=== PATIENT | female | born 1960 | race Caucasian/White ===

== ENCOUNTER 2016-11-07 02:24 | Inpatient (IN) ==
--- NOTE | 2016-11-07 04:26 | Internal Med History&Physical ---
Date of Encounter: 11/07/16 Time of Encounter: 04:18 Assessment and Plan (1) Lower GI bleed Current visit: No Status: Acute Active lower GI bleeding status post polypectomy. No thrombocytopenia, no abnormal coagulation profile. Continue monitoring hemoglobin and hematocrit. Transfuse when necessary. Eval by gastroenterology. ICU care. DVT prophylaxis with Venodyne boots. (2) Syncope Current visit: Yes Status: Acute Syncope likely induced by lower GI bleeding. Continue monitoring Head CT ordered. Qualifiers: Syncope type: unspecified Qualified Code(s): R55 - Syncope and collapse (3) Hypertension Current visit: Yes Status: Acute Continue Monitoring. Qualifiers: Hypertension type: essential hypertension Qualified Code(s): I10 - Essential (primary) hypertension (4) Obesity Current visit: Yes Status: Acute Qualifiers: Obesity type: unspecified obesity type Obesity severity: unspecified obesity severity Qualified Code(s): E66.9 - Obesity, unspecified (5) Anemia Current visit: Yes Status: Acute Acute post hemorrhagic anemia. Continue monitoring closely. Qualifiers: Anemia type: other cause Other causes of anemia: acute posthemorrhagic Qualified Code(s): D62 - Acute posthemorrhagic anemia (6) Tobacco use disorder Current visit: Yes Status: Acute Nicotine patch. (7) Hypothyroidism Current visit: Yes Status: Acute Continue with Synthroid. Check TSH levels. Qualifiers: Hypothyroidism type: unspecified Qualified Code(s): E03.9 - Hypothyroidism , unspecified (8) DVT prophylaxis Current visit: Yes Status: Acute DVT prophylaxis will be provided with Venodyne boots in light of active bleeding. We will avoid heparin. Internal Medicine - H&P: HPI Chief complaint: rectal bleeding Admitted From: Hospital to Hospital Transfer Plans for Post Hospital Care: Home History of present illness: Ms. Watson is a 56 year old female past medical history of hypertension, hyperlipidemia, obstructive sleep apnea, chronic active smoker, hypothyroidism, history of ablation in April 2016, history of a DVT many years ago not on anticoagulation. She presented to [facility] due to rectal bleeding. The patient had a colonoscopy yesterday at [facility]. She states she had 3 polyps removed. She states she had a small amount of bleeding this morning when she had a bowel movement. This evening just prior to calling the squad she got up to use the bathroom. She passed a large amount of bright red blood and clots. She got dizzy and lightheaded and passed out. Hemoglobin was 14.5 at the beginning of the month, and currently 9.0. It was 11.1 and she was ordered a blood transfusion of packed red blood cells. The emergency department at [place] attempted to transfer the patient back to [facility], however the reproduction artist was not reached. Afterwards they D/W our reproduction artist who will be consulted. The patient has been accepted to [facility] for further management. An ICU bed was assigned to the patient. Upon arrival to the ICU her blood pressure was 109 /69, respiratory rate was 18/m, heart rate was 50 mL/m. The patient is currently receiving a blood transfusion. She denies chest pain, fever, chills, shortness of breath. She is otherwise asymptomatic at this point. The patient states that she is taking aspirin, denies the use of any other blood thinners. Denies history of chronic liver disease, and a history of diabetes. Past Med Surg Social Fam HX - Past Medical History Medical history: asthma, DVT, hypertension, thyroid disease Psychiatric history: depression - Social History Smoking Status: Current every day smoker Packs per day: 0.5 Smokeless Tobacco Status: No Alcohol use: rarely Drug use: none Internal Medicine - H&P: Meds Albuterol Sulfate [Albuterol Inhaler] 2 puff IH Q6HR PRN #1 hfa.aer.ad 10/16/15 [Rx] FLUoxetine HCl [PROzac] 20 mg PO BID 10/16/15 [History] Levothyroxine [Synthroid] 175 mcg PO 0630 10/16/15 [History] Hydrochlorothiazide 25 mg PO DAILY 11/06/16 [History] Lisinopril [Zestril] 20 mg PO DAILY 11/06/16 [History] Metoprolol [Lopressor] 25 mg PO HS 11/06/16 [History] Allergies No Known Allergies Allergy (Verified 10/16/15 15:51) All Systems PM: A 10-system review of systems was performed and is negative for pertinent findings except as documented above in the HPI. - Constitutional Constitutional: as per HPI, no chills, no fever(s), no night sweats - EENT Eyes: as per HPI, no change in vision, no discharge, no pain, no photophobia Ears: as per HPI, no ear discharge, no ear pain, no tinnitus Nose, mouth and throat: as per HPI, no dysphagia, no nasal discharge, no neck pain, no sore throat - Breasts Breasts: as per HPI - Cardiovascular Cardiovascular ROS IM: as per HPI, no chest pain, no diaphoresis, no dyspnea, no lightheadedness, no palpitations, no syncope - Respiratory Respiratory: as per HPI, no cough, no dyspnea, no wheezing, no excessive phlegm production - Gastrointestinal Gastrointestinal: hematochezia, no abdominal pain, no diarrhea, no hematemesis, no melena, no nausea, no vomiting - Genitourinary Genitourinary: as per HPI, no change in urinary stream, no dysuria, no flank pain, no hematuria Menstruation: as per HPI - Musculoskeletal Musculoskeletal ROS IM: as per HPI, no numbness, no tingling - Integumentary Integumentary IM: as per HPI, no rash, no unusual bruising - Neurological Neurological ROS: as per HPI, no confusion, no convulsions, no focal weakness, no numbness, no tingling, no tremor(s) - Psychiatric Psychiatric: as per HPI - Endocrine Endocrine IM: as per HPI - Hematologic/Lymphatic Hematologic/Lymphatic: as per HPI, no easy bruising - Allergic/Immunologic Allergic/Immunologic: as per HPI - Head Head exam: Present: atraumatic, normocephalic - Eye Eye exam: Present: PERRL, conjuntiva pink, sclera anicteric Pupils: Present: PERRL - Neck Neck exam general surgery: Present: supple, trachea midline. Absent: lymphadenopathy - Respiratory Respiratory exam: Present: CTAB. Absent: accessory muscle use, rales, rhonchi, wheezes - Cardiovascular Cardiovascular exam: Present: RRR, +S1, +S2. Absent: diastolic murmur, gallop, rubs, systolic murmur - GI/Abdominal GI/Abdominal exam: Present: normal bowel sounds, soft, no peritoneal signs. Absent: distended, tenderness - Extremities Exam Extremities exam: Present: warm, radial pulses palpable and symetrical. Absent : calf tenderness, cyanotic, pedal edema - Neurological Exam Neurological exam: Present: CN II-XII intact, oriented X3, no focal deficits. Absent: pronater drift, facial droop, speech deficit - Skin Skin exam: Present: dry, intact Internal Med - H&P Results - Labs Labs: Labs reviewed.
[2016-11-07] MEDS ORDERED: Naloxone 0.4 MG/ML INJ IVP PRN (04:36)
[2016-11-07] MEDS ORDERED: *HR* Morphine 2 MG/ML SYRINGE IVP PRN (04:36)
[2016-11-07] MEDS ORDERED: Pantoprazole 40 MG VIAL IVP ONE (04:40)
[2016-11-07] MEDS ORDERED: Albuterol 2.5 MG/3 ML NEBULIZER IH PRN (04:40)
[2016-11-07] MEDS ORDERED: 0.9 % Sodium Chloride 1,000 ML IVC SCH (04:45)
[2016-11-07 06:16] LABS: Basophils # 0.1 K/mcL (0.0-0.2); Basophils % 0.4 %; Eosinophils # 0.1 K/mcL (0.0-0.6); Eosinophils % 0.5 %; Hematocrit 31.2 % (35.3-44.9); Hemoglobin 10.3 g/dL (11.5-15.4); Immature Granulocytes % 0.3 % (0-4); Lymphocytes # 4.7 K/mcL (0.6-4.6); Lymphocytes % 31.4 %; Mean Corpuscular Hemoglobin 29.9 pg (28.0-33.3); Mean Corpuscular Volume 90.4 fL (83.0-100.0); Mean Platelet Volume 11.9 fL (9.4-12.4); Monocytes % 6.4 %; Neutrophils # 9.2 K/mcL (1.6-8.9); Platelet Count 144 K/mcL (140-400); Red Blood Count 3.45 M/mcL (3.82-4.97)
[2016-11-07 06:27] LABS: INR 1.2; Prothrombin Time 12.5 Seconds (9.4-12.1)
[2016-11-07 06:37] LABS: Hemoglobin A1C 5.4 %
[2016-11-07 06:40] LABS: Albumin 2.6 g/dL (3.5-5.0); Bilirubin,Total 0.3 mg/dL (0.2-1.2); Globulin 2.6 g/dL (2.4-3.5); Magnesium 1.4 mg/dL (1.6-2.6); Potassium 3.8 mEq/L (3.5-4.5); Total Protein 5.2 g/dL (6.0-8.3)
[2016-11-07] MEDS ORDERED: Magnesium Sulfate 2 GM in D5% in Water 100 ML IVPB ONE (08:13)
[2016-11-07] MEDS ORDERED: SODIUM CHLORIDE/NAHCO3/KCL/PEG 4,000 ML SOLN.RECON PO ONE (08:15)
--- NOTE | 2016-11-07 08:47 | Internal Med Progress Note ---
Date of Encounter: 11/07/16 Time of Encounter: 08:30 - Assessment and plan (1) Lower GI bleed Current Visit: No Status: Acute Assessment and plan: Patient s/p polypectomy GI consulted, Dr. Larry to see the patient later today Started Golytely prep for possible colonoscopy later today Will closely monitor H&H S/P one unit PRBC transfusion Will continue to monitor and transfuse as needed. Hold Aspirin at this time continue IV fluids NPO IV protonix (2) Anemia Current Visit: Yes Status: Acute Assessment and plan: Acute blood loss anemia secondary to lower GI bleed will continue to closely monitor and transfuse as needed Qualifiers: Anemia type: other cause Other causes of anemia: acute posthemorrhagic Qualified Code(s): D62 - Acute posthemorrhagic anemia (3) Metabolic acidosis Current Visit: Yes Status: Acute Assessment and plan: Normal anion gap metabolic acidosis likely secondary to IV fluid infusion Given recent GI bleed and current NPO status, will continue IV fluids however will decrease IV fluid infusion rate and continue to monitor (4) Hypertension Current Visit: Yes Status: Acute Assessment and plan: Noted to be hypotensive BP low but acceptable Currently asymptomatic continue to hold all home antihypertensive medications at this time will closely monitor IVF bolus if MAP<65 Qualifiers: Hypertension type: essential hypertension Qualified Code(s): I10 - Essential (primary) hypertension (5) Hypothyroidism Current Visit: Yes Status: Chronic Qualifiers: Hypothyroidism type: unspecified Qualified Code(s): E03.9 - Hypothyroidism , unspecified (6) DVT prophylaxis Current Visit: Yes Status: Acute Assessment and plan: IPCD - Subjective Interval history: Patient is a 56y/o female admitted to the ICU for management of lower GI bleed. Patient seen and examined at bedside. Resting in bed and reports of having another episode of BRPR earlier this morning around 5. Noted to be hypotensive but denies any headache, dizziness,chest pain, sob, n/v, abd discomfort at this time. I spoke with Dr. Larry. Patient to be started to bowel prep with Golytely and possible colonoscopy later today. - Constitutional Vitals: Temp Pulse Resp BP Pulse Ox 97.9 F 60 18 104/71 99 11/07/16 08:20 11/07/16 06:00 11/07/16 06:00 11/07/16 06:00 11/07/16 06:00 General appearance: Present: A&O X 3, morbidly obese, no acute distress, answers questions appropriately - Head Head exam: Present: atraumatic, normocephalic - Eye Eye exam: Present: EOMI, normal appearance, conjuntiva pink, sclera anicteric - Respiratory Respiratory exam: Present: CTAB. Absent: accessory muscle use, rales, rhonchi, wheezes - Cardiovascular Cardiovascular exam: Present: RRR, +S1, +S2. Absent: diastolic murmur, gallop, rubs, systolic murmur - GI/Abdominal GI/Abdominal exam: Present: normal bowel sounds, soft, no peritoneal signs. Absent: distended, tenderness - Extremities Exam Extremities exam: Present: warm, radial pulses palpable and symetrical. Absent : calf tenderness, cyanotic, pedal edema - Neurological Exam Neurological exam: Present: alert, oriented X3 - Psychiatric Psychiatric exam: Present: normal affect, normal mood Internal Medicine: Result - Labs CBC & Chem 7: 11/07/16 05:57 11/07/16 05:57 Labs: Short CBC 11/07/16 Range/Units 05:57 WBC 15.0 H (4.3-11.1) K/mcL Hgb 10.3 L (11.5-15.4) g/dL Hct 31.2 L (35.3-44.9) % Plt Count 144 (140-400) K/mcL Neutrophils # 9.2 H (1.6-8.9) K/mcL BMP 11/07/16 05:57 Sodium 139 Potassium 3.8 Chloride 113 H Carbon Dioxide 18 L BUN 30 H Creatinine 1.16 H Glucose 99 Calcium 8.0 L Cardiac Enzymes 11/07/16 Range/Units 05:57 Troponin I 0.00 (0-0.03) ng/mL Liver Function 11/07/16 Range/Units 05:57 Total Bilirubin 0.3 (0.2-1.2) mg/dL AST 22 (5-34) Units/L ALT 19 (0-55) Units/L Alkaline Phosphatase 55 (38-126) Units/L Albumin 2.6 L (3.5-5.0) g/dL - ABG Interpretation ABG results: PT/INR, D-dimer PT 12.5 Seconds (9.4-12.1) H 11/07/16 05:57 - Impressions Impressions Head CT 11/07/16 04:29 IMPRESSION: No acute intracranial abnormality. D/ / Jayden Thrasher MD / Jayden Thrasher MD Interpreting Provider: Jayden Thrasher MD Consult Discharge Plan - Plan Referrals: NO,PCP [Primary Care Provider] -
[2016-11-07] MEDS ORDERED: 0.9 % Sodium Chloride 250 ML IVC PRN (08:58)
[2016-11-07 13:12] LABS: Hematocrit 31.4 % (35.3-44.9); Hemoglobin 10.6 g/dL (11.5-15.4)
[2016-11-07] MEDS: 0.9 % Sodium Chloride 1,000 ML IVC SCH ×2 (13:47→22:00)
[2016-11-07] MEDS ORDERED: Ondansetron 4 MG/2 ML VIAL ONE (15:35)
[2016-11-07] MEDS: Pantoprazole 40 MG VIAL IVP SCH (16:56)
[2016-11-07] MEDS ORDERED: Ondansetron 4 MG/2 ML VIAL IVP PRN (18:00)
[2016-11-07 18:10] LABS: Hematocrit 33.1 % (35.3-44.9); Hemoglobin 10.7 g/dL (11.5-15.4)
[2016-11-08 03:32] LABS: Basophils # 0.1 K/mcL (0.0-0.2); Basophils % 0.6 %; Eosinophils # 0.2 K/mcL (0.0-0.6); Eosinophils % 1.6 %; Hematocrit 30.9 % (35.3-44.9); Hemoglobin 9.9 g/dL (11.5-15.4); Immature Granulocytes % 0.2 % (0-4); Lymphocytes # 3.9 K/mcL (0.6-4.6); Lymphocytes % 41.9 %; Mean Corpuscular Hemoglobin 29.6 pg (28.0-33.3); Mean Corpuscular Volume 92.2 fL (83.0-100.0); Mean Platelet Volume 12.1 fL (9.4-12.4); Monocytes # 0.6 K/mcL (0.0-1.3); Monocytes % 6.6 %; Neutrophils # 4.5 K/mcL (1.6-8.9); Platelet Count 131 K/mcL (140-400); Red Blood Count 3.35 M/mcL (3.82-4.97); Red Cell Distribution Width 14.1 % (11.5-14.5); Segmented Neutrophils % 49.1 %
[2016-11-08 03:40] LABS: BUN/Creatinine Ratio 17 (6-26); Calcium 8.2 mg/dL (8.6-10.8); Carbon Dioxide 20 mEq/L (19-29); Chloride 114 mEq/L (98-109); Glucose 92 mg/dL (70-99); Magnesium 1.6 mg/dL (1.6-2.6); Osmolality,Calculated 293 (280-300); Phosphorous 2.9 mg/dL (2.3-4.7); Sodium 141 mEq/L (136-145); eGFR For African Americans > 60 (> 60); eGFR For Non-African Americans 58 (> 60)
[2016-11-08 03:50] LABS: Blood Urea Nitrogen 17 mg/dL (7-20)
[2016-11-08] MEDS: Pantoprazole 40 MG VIAL IVP SCH ×2 (06:08→17:58)
[2016-11-08] MEDS ORDERED: Polyethylene Glycol 3350 255 GM POWDER PO ONE (07:41)
--- NOTE | 2016-11-08 09:28 | Internal Med Progress Note ---
Date of Encounter: 11/08/16 Time of Encounter: 09:26 - Assessment and plan (1) Lower GI bleed Current Visit: No Status: Acute Assessment and plan: Acute blood loss anemia secondary to Lower GI bleed possibly due s/p polypectomy GI consulted, Dr. Larry to perform a colonoscopy today Started Golytely prep for possible colonoscopy Will closely monitor H&H S/P one unit PRBC transfusion Will continue to monitor and transfuse as needed. Hold Aspirin at this time continue IV fluids NPO IV protonix the patient requested to be discharged as her mother , AMA signing was considered but I explained the risks including a and finally she agreed to stay (2) Hypertension Current Visit: Yes Status: Acute Assessment and plan: Noted to be hypotensive on 11/07/16 stable now Currently asymptomatic continue to hold all home antihypertensive medications at this time will closely monito/rIVF bolus if MAP<65 Qualifiers: Hypertension type: essential hypertension Qualified Code(s): I10 - Essential (primary) hypertension (3) Syncope Current Visit: Yes Status: Acute Assessment and plan: syncope due to severe hypovolemia secondary to acute blood loss fall precautions Qualifiers: Syncope type: unspecified Qualified Code(s): R55 - Syncope and collapse (4) Anemia Current Visit: Yes Status: Acute Assessment and plan: Acute blood loss anemia secondary to lower GI bleed will continue to closely monitor and transfuse as needed Qualifiers: Anemia type: other cause Other causes of anemia: acute posthemorrhagic Qualified Code(s): D62 - Acute posthemorrhagic anemia (5) Tobacco use disorder Current Visit: Yes Status: Acute (6) Hypothyroidism Current Visit: Yes Status: Chronic Qualifiers: Hypothyroidism type: unspecified Qualified Code(s): E03.9 - Hypothyroidism , unspecified - Time Spent With Patient Greater than 35 minutes - Subjective Interval history: the patient is very anxious as she was just made aware that her mother . Has been having more bloody stools. Denies CP or SOB, no dysuria. No fever - Constitutional Vitals: Temp Pulse Resp BP Pulse Ox 97.8 F 67 16 137/73 97 11/08/16 07:13 11/08/16 07:13 11/08/16 07:13 11/08/16 07:13 11/08/16 07:13 General appearance: Present: A&O X 3, morbidly obese, no acute distress, answers questions appropriately - Head Head exam: Present: atraumatic, normocephalic - Eye Eye exam: Present: PERRL, conjuntiva pink, sclera anicteric Pupils: Present: PERRL - Neck Neck exam general surgery: Present: supple, trachea midline. Absent: lymphadenopathy - Respiratory Respiratory exam: Present: decreased breath sounds, CTAB. Absent: accessory muscle use, rales, rhonchi, wheezes - Cardiovascular Cardiovascular exam: Present: RRR, +S1, +S2. Absent: diastolic murmur, gallop, rubs, systolic murmur - GI/Abdominal GI/Abdominal exam: Present: normal bowel sounds, soft, no peritoneal signs. Absent: distended, tenderness - Extremities Exam Extremities exam: Present: warm, radial pulses palpable and symetrical. Absent : calf tenderness, cyanotic, pedal edema - Neurological Exam Neurological exam: Present: CN II-XII intact, oriented X3, no focal deficits. Absent: pronater drift, facial droop, speech deficit - Skin Skin exam: Present: dry, intact Internal Medicine: Result - Labs CBC & Chem 7: 11/08/16 02:43 11/08/16 02:43 Labs: Short CBC 11/07/16 11/07/16 11/08/16 Range/Units 12:50 18:04 02:43 WBC 9.2 (4.3-11.1) K/mcL Hgb 10.6 L 10.7 L 9.9 L (11.5-15.4) g/dL Hct 31.4 L 33.1 L 30.9 L (35.3-44.9) % Plt Count 131 L (140-400) K/mcL Neutrophils # 4.5 (1.6-8.9) K/mcL BMP 11/08/16 02:43 Sodium 141 Potassium 4.0 Chloride 114 H Carbon Dioxide 20 BUN 17 D Creatinine 0.99 Glucose 92 Calcium 8.2 L Cardiac Enzymes 11/07/16 11/07/16 Range/Units 12:50 18:04 Troponin I 0.00 0.00 (0-0.03) ng/mL - ABG Interpretation ABG results: PT/INR, D-dimer PT 12.5 Seconds (9.4-12.1) H 04/01/17 05:57 Consult Discharge Plan - Plan Referrals: NO,PCP [Primary Care Provider] -
--- NOTE | 2016-11-08 12:22 | Gastroenterology Consult Note ---
Date of Encounter: 11/08/16 Time of Encounter: 09:40 - Assessment and plan (1) Lower GI bleed Current Visit: No Status: Acute Assessment and plan: Lower GI post polypectomy bleed. Patient has been transfused. She is still having bloody bowel movement. She will have a colonoscopy with possible clipping of the bleeding site. Will follow H&H and transfuse as needed - Time Spent With Patient Total time spent is greater than 50% in coordination of care (as documented) at patient's floor/unit and/or counseling patient: GI History of Present Illness - Data of Consult Consult date: 11/08/16 Requesting Physician: Ze Rivero - Consult Narrative Reason for consult: Lower GI bleed in this patient who is post polypectomy History of present illness: Ms. Watson is a 56 year old female with a colonoscopy done on at [facility] and had 3 polyps removed. The largest polyp was 25 mm in size. Palpation she noticed some blood even after being discharged but at the evening she started having more abdominal cramping and she was also having bloody bowel movement. Still having bloody bowel movement with The bowel prep and is complaining feeling bloated. No fever no chills. Has been on aspirin but no other blood thinner medication. Past Med Surg Social Fam HX - Past Medical History Medical history: asthma, DVT, hypertension, thyroid disease Psychiatric history: depression - Social History Smoking Status: Current every day smoker Packs per day: 0.5 Smokeless Tobacco Status: No Alcohol use: rarely Drug use: none Review of Systems: GI: as per PAUMA GENERAL: denies fever, has some chills EYES: denies yellow discoloration ENT: denies pain with swallowing or difficulty swallowing CARDIO: denies chest pain, palpitations RESP: denies shortness of breath or wheezing : denies change in color of urine NEURO: some nonspecific weakness HEME: Denies any bruising MS: denies joint pain, joint swelling or back pain. DERM: denies rash or itching PSYCH: has history of: depression/anxiety - Constitutional Vitals: Temp Pulse Resp BP Pulse Ox 98.7 F 80 16 153/97 97 11/08/16 11:20 11/08/16 11:20 11/08/16 11:20 11/08/16 11:20 11/08/16 07:13 General appearance: Present: A&O X 3, pleasant - Head Head exam: Present: normocephalic - Eye Eye exam: Present: sclera anicteric - Neck Neck exam general surgery: Present: supple - Respiratory Additional comments: Bilateral good air entry no crackle wheezing - Cardiovascular Cardiovascular exam: Present: +S1, +S2 Additional comments: Rhythm is regular - GI/Abdominal Additional comments: Abdomen is large but soft no focal tenderness - Rectal Rectal exam: Present: deferred - Neurological Exam Neurological exam: Present: oriented X3 - Skin Skin exam: Present: dry, warm Results - Labs CBC & Chem 7: 11/08/16 02:43 11/08/16 02:43 Labs: Last Result Calcium 8.2 mg/dL (8.6-10.8) L 11/08/16 02:43 Troponin I 0.00 ng/mL (0-0.03) 11/07/16 18:04 Entire Visit Hgb 9.9 g/dL (11.5-15.4) L 11/08/16 02:43 Hct 30.9 % (35.3-44.9) L 11/08/16 02:43 PT 12.5 Seconds (9.4-12.1) H 11/07/16 05:57 Total Bilirubin 0.3 mg/dL (0.2-1.2) 11/07/16 05:57 AST 22 Units/L (5-34) 11/07/16 05:57 ALT 19 Units/L (0-55) 11/07/16 05:57 - ABG ABG results: PT/INR, D-dimer PT 12.5 Seconds (9.4-12.1) H 11/07/16 05:57 Consult Discharge Plan - Plan Referrals: NO,PCP [Primary Care Provider] -
--- NOTE | 2016-11-08 12:28 | Anesthesia Evaluation PreOp ---
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 History: Denies Any Significant HX Other Medical History: Thyroid, Other (Obese) Anesthesia History: No Prior Anesthetic Complications : No Alcohol Use: rarely Drug use: none Medications and Allergies Albuterol Sulfate [Albuterol Inhaler] 2 puff IH Q6HR PRN #1 hfa.aer.ad 10/16/15 [Rx] FLUoxetine HCl [PROzac] 40 mg PO DAILY 10/16/15 [History] Hydrochlorothiazide 25 mg PO DAILY 11/06/16 [History] Lisinopril [Zestril] 20 mg PO BID 11/06/16 [History] Aspirin [Lo-Dose Aspirin EC] 81 mg PO DAILY 11/07/16 [History] Levothyroxine Sodium 150 mcg PO DAILY 11/07/16 [History] Metoprolol XL (24 HR) Succ [Toprol XL] 25 mg PO DAILY 11/07/16 [History] Ondansetron HCl [Zofran] 4 mg PO QID PRN 11/07/16 [History] Allergies No Known Allergies Allergy (Verified 10/16/15 15:51) - Meds/Allergy Pre-op Review Medications Reviewed: Yes Allergies Reviewed: Yes Beta Blockers on Current Med List: No Anesthesia Results - Labs 11/08/16 02:43 11/08/16 02:43 Anesthesia Exam O2 Sat Weight 117.4 kg Weight 123.3 kg O2 Sat by Pulse Oximetry 97 O2 Sat by Pulse Oximetry 97 O2 Sat by Pulse Oximetry 97 O2 Sat by Pulse Oximetry 99 Vital Signs Temp Pulse Resp BP Pulse Ox 98 F 65 18 114/51 100 11/07/16 04:30 11/07/16 04:30 11/07/16 04:30 11/07/16 04:30 11/07/16 04:30 Vital Signs/O2 Sat/Glucose, Most Current Temp Pulse Resp BP 11/08/16 11:20 98.7 F 80 16 153/97 Height: 5'8 Weight: 258 lbs NPO (# of Hours): MN Pain Scale: 0 - HEENT Pupil (Motor): Pupils equal, EOMI Mallampati: III Teeth: Normal Oral Opening: Greater than 3 - HAIRPIECE STYLIST LOC: Oriented HAIRPIECE STYLIST Motor: Normal RUE, Normal LUE, Normal RLE, Normal LLE, Normal Face HAIRPIECE STYLIST Sensory: Normal: RUE, LUE, RLE, LLE, Face - Cardiac Rhythm: Regular Murmur: None JVD: No Carotid Bruit: No - Pulmonary Breath Sounds: bilateral Clear Respiratory Effort: Symmetrical Anesthesia Assess/Plan ASA Score: 3 (HTN ISAIAS Obese) Modified Manju Scale for Level of Consciousness: Cooperative, oriented, and tranquil Anesthetic Plan: MAC Monitoring Plan: Standard Monitors Recovery Plan: Other (Discussed MAC, agrees to proceed)
[2016-11-08] MEDS ORDERED: Lidocaine -MPF 2% 2 ML VIAL ONE (12:43)
[2016-11-08] MEDS ORDERED: Propofol 500 MG/50 ML INFUS..BTL ONE ×2 (12:43)
[2016-11-08] MEDS ORDERED: *HR* FentaNYL (PF) 100 MCG/2 ML VIAL ONE (13:04)
[2016-11-08] MEDS ORDERED: *HR* Propofol 200 MG/20 ML VIAL IVP ONE (13:31)
--- NOTE | 2016-11-08 13:58 | Anesthesia Evaluation Post Op ---
Date of Encounter: 11/08/16 Time of Encounter: 14:00 - Vital Signs Vital Signs: Vital Signs/O2 Sat/Glucose, Most Current Temp Pulse Resp BP 11/08/16 11:20 98.7 F 80 16 153/97 - Lungs Lungs: Clear Ascult./Percussion - Airway Airway: Non-obstructed - Cardiovascular Regular Rate - Mental Status Mental Status: Alert & Oriented, Answers Appropriately - Pain Pain Scale: 0 - Nausea Vomiting Nausea Vomiting: Not Present - Hydration Hydration: NPO - Discharge PostOp Status: Transfer Patient to floor
[2016-11-08 15:17] LABS: Hematocrit 32.3 % (35.3-44.9); Hemoglobin 10.8 g/dL (11.5-15.4)
[2016-11-08 20:51] LABS: Hematocrit 30.5 % (35.3-44.9); Hemoglobin 10.2 g/dL (11.5-15.4); Immature Platelets 7.4 % (1.1-6.1); Mean Corpuscular HGB Conc 33.4 g/dL (31.6-35.5); Mean Corpuscular Hemoglobin 29.9 pg (28.0-33.3); Mean Corpuscular Volume 89.4 fL (83.0-100.0); Mean Platelet Volume 11.5 fL (9.4-12.4); Red Blood Count 3.41 M/mcL (3.82-4.97); Red Cell Distribution Width 13.7 % (11.5-14.5)
[2016-11-09 03:42] LABS: Hematocrit 28.9 % (35.3-44.9); Hemoglobin 9.6 g/dL (11.5-15.4); Mean Corpuscular HGB Conc 33.2 g/dL (31.6-35.5); Mean Corpuscular Hemoglobin 29.7 pg (28.0-33.3); Mean Corpuscular Volume 89.5 fL (83.0-100.0); Mean Platelet Volume 11.8 fL (9.4-12.4); Platelet Count 123 K/mcL (140-400); Red Blood Count 3.23 M/mcL (3.82-4.97); Red Cell Distribution Width 13.8 % (11.5-14.5)
[2016-11-09 03:57] LABS: BUN/Creatinine Ratio 13 (6-26); Blood Urea Nitrogen 13 mg/dL (7-20); Calcium 8.6 mg/dL (8.6-10.8); Carbon Dioxide 19 mEq/L (19-29); Chloride 112 mEq/L (98-109); Glucose 98 mg/dL (70-99); Osmolality,Calculated 288 (280-300); Potassium 3.8 mEq/L (3.5-4.5); Sodium 139 mEq/L (136-145); eGFR For African Americans > 60 (> 60); eGFR For Non-African Americans 58 (> 60)
[2016-11-09] MEDS: Pantoprazole 40 MG VIAL IVP SCH (06:35)
[2016-11-09 07:30] VITALS: BP 135/87
--- NOTE | 2016-11-09 09:06 | Discharge Summary ---
Date of Encounter: 11/09/16 Time of Encounter: 09:04 - Discharge Diagnosis (1) Lower GI bleed Priority: Primary Status: Acute Comments: Syncope from hypovolemia with Acute blood loss anemia secondary to Lower GI bleed due to bleeding colonic ulcers after polypectomy s/p cautherization and clipping (2) Hypertension Priority: Secondary Status: Acute Qualifiers: Hypertension type: essential hypertension Qualified Code(s): I10 - Essential (primary) hypertension (3) Syncope Priority: Primary Status: Acute Qualifiers: Syncope type: unspecified Qualified Code(s): R55 - Syncope and collapse (4) Anemia Priority: Primary Status: Acute Qualifiers: Anemia type: other cause Other causes of anemia: acute posthemorrhagic Qualified Code(s): D62 - Acute posthemorrhagic anemia (5) Tobacco use disorder Priority: Secondary Status: Acute (6) Hypothyroidism Priority: Secondary Status: Chronic Qualifiers: Hypothyroidism type: unspecified Qualified Code(s): E03.9 - Hypothyroidism , unspecified - Discharge Medications Prescriptions: Omeprazole [PriLOSEC] 40 mg PO DAILY #30 cap Home Medications: Albuterol Sulfate [Albuterol Inhaler] 2 puff IH Q6HR PRN #1 hfa.aer.ad 10/16/15 [Rx] FLUoxetine HCl [Prozac] 40 mg PO DAILY 10/16/15 [History] Hydrochlorothiazide 25 mg PO DAILY 11/06/16 [History] Lisinopril [Zestril] 20 mg PO BID 11/06/16 [History] Aspirin [Lo-Dose Aspirin EC] 81 mg PO DAILY 11/07/16 [History] Levothyroxine Sodium 150 mcg PO DAILY 11/07/16 [History] Metoprolol XL (24 HR) Succ [Toprol Xl] 25 mg PO DAILY 11/07/16 [History] Ondansetron HCl [Zofran] 4 mg PO QID PRN 11/07/16 [History] Omeprazole [PriLOSEC] 40 mg PO DAILY #30 cap 11/09/16 [Rx] Allergies/Adverse Reactions: Allergies No Known Allergies Allergy (Verified 10/16/15 15:51) Procedures/tests Complete & Pending: Procedures Performed prior 72 hours Category Date Time Status CT head/brain wo con [CT] Stat Cat Scan 11/07/16 04:29 Completed Date of admission: 11/07/16 03:49 Primary care physician: PCP NO Consults: 11/07/16 07:00 Consult to Gastroenterology [CONS] Routine Consulting Provider: Carol Brandt Reason for Consult: lower gi bleeding post polypectomy Call Completed: No - Patient Status Disposition: Home, Self-Care Condition: Good Overall status at discharge: patient is progressing back to baseline - Discharge Instructions Follow Up With: NO,PCP [Primary Care Provider] - Additional Instructions: Follow with primary care physician within the next 7 days. Hold aspirin for 1 week. Continue omeprazole 40 mg daily. Low residue diet. Follow with GI within the next 3 months to schedule next colonoscopy. Quit smoking - Diet and Activity Activity: increase activity as tolerated Diet: other (low residue diet) Hospital course: Ms. Watson is a 56 year old female with a past medical history of hypertension , hyperlipidemia, obstructive sleep apnea, chronic active smoker, hypothyroidism , history of ablation in April 2016, history of a DVT many years ago not on anticoagulation. She presented to [facility] due to rectal bleeding. The patient had a colonoscopy at [facility]. She stated she had 3 polyps removed and had a small amount of bleeding initially. On the evening of her admission, she passed a large amount of bright red blood and clots. She got dizzy, lightheaded and passed out. Hemoglobin was 14.5 at the beginning of last month, and dropped down to 9.0 even after a transfusion of 1 unit of RBCs. The emergency department at [place] attempted to transfer the patient back to [facility], however the patient escort was not reached. Afterwards they D/W our patient escort Dr Larry who performed a colonoscopy findings 3 ulcers 1 and a hepatic flexure although in the cecum and ascending colon, clips were placed to stop the bleeding. The patient's hemoglobin today is 9.6, she is a stable. The patient requested to be discharged today as her mother yesterday, she was given the option to monitor her blood counts later today with mom and she prefers to be discharged to attend her mother's . Aspirin was held during hospitalization Time spent discussing smoking cessation with patient: 3 to 10 minutes - Time Spent with Patient Total time spent providing and/or coordinating discharge services: Greater than 30 minutes (40 min) - Constitutional Vitals: Temp Pulse Resp BP Pulse Ox 98 F 105 16 135/87 97 11/09/16 07:28 11/09/16 07:28 11/09/16 07:28 11/09/16 07:28 11/09/16 07:28 General appearance: Present: A&O X 3, no acute distress, obese, answers questions appropriately - Head Head exam: Present: atraumatic, normocephalic - Eye Eye exam: Present: PERRL, conjuntiva pink, sclera anicteric Pupils: Present: PERRL - Neck Neck exam general surgery: Present: supple, trachea midline. Absent: lymphadenopathy - Respiratory Respiratory exam: Present: CTAB. Absent: accessory muscle use, rales, rhonchi, wheezes - Cardiovascular Cardiovascular exam: Present: RRR, +S1, +S2. Absent: diastolic murmur, gallop, rubs, systolic murmur - GI/Abdominal GI/Abdominal exam: Present: normal bowel sounds, soft, no peritoneal signs. Absent: distended, tenderness - Extremities Exam Extremities exam: Present: warm, radial pulses palpable and symetrical. Absent : calf tenderness, cyanotic, pedal edema - Neurological Exam Neurological exam: Present: CN II-XII intact, oriented X3, no focal deficits. Absent: pronater drift, facial droop, speech deficit - Skin Skin exam: Present: dry, intact
== END 2016-11-09 10:32 | disposition home or self-care (01) | DRG 813 ==
LOC: SUATTDRO 03:49 → ICNU 03:49 → 2NNU 15:21
PROVIDERS: ADMIT Internal Medicine; ATTEND Internal Medicine